=== PATIENT | female | born 1975 | race Caucasian/White ===

== ENCOUNTER 2016-12-18 13:29 | Emergency (ER) | payer OTHER ==
[~2016-12-18] VITALS: Ht 162.6 cm; Wt 85.6 kg
[~2016-12-18 13:29] MED LIST: FIORIC PO; HYDR12.56 PO; NIFE30TA2 PO; Z.0.BCPILL PO
[2016-12-18 13:34] VITALS: PULSE 95; RESP 16; TEMP 98.4; O2SAT 99
--- NOTE | 2016-12-18 13:41 | PD ---
HPI Chief Complaint: Injury Time Seen by Provider: 13:40 Travel History International Travel<30 days: No Contact w/Intl Traveler<30days: No Traveled to known affect area: No History of Present Illness HPI 41 year old female presents to the ED for evaluation of 6-7/10 right foot pain. Onset at 10 AM. Patient states that she was at work, holding the door for another person. She released the door and her foot was caught underneath it. She has been ambulatory since the accident. She denies numbness, tingling, weakness, limitations to range of motion or loss of strength. She treated by icing. She states that her coworkers were worried that her foot was broken which prompted her to seek treatment today. [facility] Past Medical History Hypertension: Yes Migraines: Yes ?: Not LMP: LAST WEEK Social History Alcohol Use: Yes (OCC) Tobacco Use: No Substance Use: No Allergies-Medications (Allergen,Severity, Reaction): Coded Allergies: No Known Allergies (Unverified , 12/18/16) Reported Meds & Prescriptions Reported Meds & Active Scripts Active Review of Systems Except as stated in HPI: all other systems reviewed are Neg Physical Exam Narrative GENERAL: Well-nourished, well-developed pleasant white female in no acute distress. SKIN: Focused skin assessment warm/dry. Mild/moderate ecchymosis and edema of the lateral aspect of the right foot. HEAD: Normocephalic. EYES: No scleral icterus. No injection or drainage. NECK: Supple, trachea midline. No JVD or lymphadenopathy. CARDIOVASCULAR: Regular rate and rhythm without murmurs, gallops, or rubs. RESPIRATORY: Breath sounds equal bilaterally. No accessory muscle use. GASTROINTESTINAL: Abdomen soft, non-tender, nondistended. MUSCULOSKELETAL: No cyanosis, or edema. The patient is noted to walk with a limp. FOCUSED RIGHT LOWER EXTREMITY EXAM: 2+ DP pulse. Tender to palpation of the dorsolateral aspect of the foot. Patient maintains full, active, painless flexion, extension of the ankle and toes. Sensation intact to light touch distally. Cap refill less than 2 seconds in each digit. BACK: Nontender without obvious deformity. No CVA tenderness. Data Data Last Documented VS Vital Signs Date Time Temp Pulse Resp B/P Pulse Ox O2 Delivery O2 Flow Rate FiO2 12/18/16 13:34 98.4 95 16 99 Orders Foot, Complete ([id number]) (12/18/16 13:46) Ice/Cold Pack (12/18/16 13:46) Ibuprofen (Motrin) (12/18/16 14:00) [facility] Medical Decision Making Medical Screen Exam Complete: Yes Emergency Medical Condition: Yes Differential Diagnosis Contusion versus fifth metatarsal fracture versus musculoskeletal pain versus sprain versus other Narrative Course 41 year old female presents to the ED for evaluation of 6-710 right foot pain. Onset at 10 AM. Patient states that she was at work, holding the door for another person. She released the door and her foot was caught underneath it. She has been ambulatory since the accident. She denies numbness, tingling, weakness, limitations to range of motion or loss of strength. Vitals reviewed. Physical exam reveals a pleasant white female in no acute distress. There is mild to moderate ecchymosis and edema of the dorsolateral aspect of the right foot. 2+ DP pulse. Patient maintains full, active, painless ROM of the lower extremity. Ambulates with a limp. Ice pack applied. Ibuprofen was administered. X-rays reveal no acute disease per radiology read. This is contusion of the right foot. Patient is instructed to rest, ice, elevate the extremity, utilize OTC NSAIDs for pain and inflammation, follow-up with the primary care provider. Worker's Compensation paperwork was completed. The patient indicated understanding of instructions and is agreeable to the care plan. The patient is stable and discharged home. Diagnosis Primary Impression: Contusion of right foot, initial encounter Referrals: Primary Care Physician Patient Instructions: Contusion in Adults (ED), General Instructions Additional Instructions: Rest, ice, elevate the extremity. Apply ice no longer than 10-15 minutes per hour a few times a day. 800 mg ibuprofen up to 3 times a day as needed for pain. Return to normal, gentle activity as tolerated. No running, jumping activities for the next few weeks. Follow up with orthopedist or your primary care provider. Return to the ED for any urgent or emergent medical condition. Disposition: 01 DISCHARGE HOME Condition: Stable Ayde Maloney Dec 18, 2016 13:41
[2016-12-18] MEDS ORDERED: IBUPROFEN 800 MG TAB PO ONE (14:00)
--- NOTE | 2016-12-18 14:04 | RADHPO ---
EXAM DATE/TIME: 12/18/2016 13:51 [place] COMPARISON: No previous studies available for comparison. INDICATIONS : Right foot pain; door shut on foot today. MEDICAL HISTORY : None. SURGICAL HISTORY : None. ENCOUNTER: Initial ACUITY: 1 day PAIN SCORE: 6/10 LOCATION: Right lateral foot FINDINGS: Three view examination of the right foot demonstrates no soft tissue swelling, dislocation, or fractu re. The tarsal bones appear intact. The interphalangeal and metatarsophalangeal joints are intact. The calcaneus is intact. Bony mineralization is normal. CONCLUSION: No acute disease. Yaw Warner MD on December 18, 2016 at 14:02 Board Certified Radiologist. This report was verified electronically.
== END 2016-12-18 14:46 | disposition home or self-care (01) ==
LOC: PHEFT 13:29
DX: S90.31XA Contusion of right foot, initial encounter (principal); I10 Essential (primary) hypertension; W20.8XXA Other cause of strike by thrown, projected or falling object, initial encounter; Y93.89 Activity, other specified; Y92.219 Unspecified school as the place of occurrence of the external cause; Y99.0 Civilian activity done for income or pay
CPT/HCPCS: 73630; 99283